=== PATIENT | female | born 1995 | race Caucasian/White ===

== ENCOUNTER → 2021-07-16 01:37 | Outpatient (CLI) | payer OTHER, SELFPAY ==
[2021-07-16 18:23] LABS: SARS-CoV-2 RNA PCR Negative
== END ==
PROVIDERS: Visit Provider Obstetrics & Gynecology
DX: Z01.812 Encounter for preprocedural laboratory examination (principal); Z20.822 Contact with and (suspected) exposure to COVID-19
CPT/HCPCS: C9803; U0003; U0005

== ENCOUNTER 2021-07-16 09:12 | Outpatient (CLI) | payer OTHER, SELFPAY | END 2021-07-16 09:13 | disposition home or self-care (01) | LOC: ANHSURGERY 09:15 | PROVIDERS: PCP Internal Medicine; Visit Provider Obstetrics & Gynecology | DX: R10.2 Pelvic and perineal pain (principal); Z01.818 Encounter for other preprocedural examination | CPT/HCPCS: 36415; 86850; 86900; 86901 ==

== ENCOUNTER 2021-07-19 01:19 | Day surgery (SDC) | payer OTHER, SELFPAY ==
[2021-07-11 15:54] VITALS: BMI 19.2
--- NOTE | 2021-07-17 07:41 | PM.IMHP ---
H&P: HPI History of Present Illness Date/Time: 07/17/21 07:41 [age] seen in laparoscopy secondary to pain dyspnea. Patient's history review repair 20s and IUD surgically removed she was risks and benefits were reviewed including but not exclusive of , aspiration pneumonia, bleeding, transfusion perforation injury to bowel bladder, internal organs with need laparotomy. She received the [employer] handout entitled laparoscopy. She had all questions answered. She asked to proceed Chief Complaint: Pelvic pain Review of Systems Review of Systems: All systems reviewed & are unremarkable except as noted in HPI and below PMFSH Social History Social History Smoking status: Never smoker Alcohol intake: never Substance use: current Substance use type: marijuana Other substance usage details: SMOKE Last use: 07/06/21 Spiritual care concerns: No Meds Home Medications and Allergies Home Medications Medication Instructions Recorded Confirmed Type dicyclomine 20 mg PO PRN PRN 07/11/21 07/11/21 History [id number] 1 tablet PO DAILY 07/11/21 07/11/21 History [] promethazine 25 mg PO Q6H PRN 07/11/21 07/11/21 History Allergies Allergy/AdvReac Type Severity Reaction Status Date / Time gluten AdvReac Severe Diarrhea Verified 07/11/21 15:51 Exam Const: General: no acute distress Eyes: General: appearance normal, both eyes and all related structures Neck: Neck: supple and no JVD Thyroid: thyroid normal Resp: Effort & Inspection: normal respiratory effort Auscultation: clear to auscultation bilaterally Cardio: Rate: regular rate Rhythm: regular rhythm GI: Inspection: non-distended GI Palp: Yes Soft to palpation, No Tenderness to palpation present (GI) and No Guarding due to palpation present (GI) Auscultation: normal bowel sounds : External Female Exam: normal external appearance Speculum Exam - Vagina: normal appearance of the vagina Speculum Exam - Cervix: normal appearance of the cervix and Cervical os closed Bimanual exam- vagina & uterus: Cervical tenderness present and Uterine tenderness Bimanual Exam- Adnexa, other: tender Skin: General skin exam: no rashes or lesions noted Extrem: General: normal to inspection and no edema Psych: Mental Status: mental status grossly normal Affect: normal affect Assessment and Plan Additional Plan Impression: Pelvic pain Plan: Diagnostic laparoscopy
--- NOTE | 2021-07-18 14:40 | P.PNAN_ITS ---
Anes - Initial Pre Proc Eval Procedure: Operation Date: 07/19/21 09:30 Proposed Procedures p Diagnostic Laparoscopy - Andrew Watkins MD Date/Time: 07/18/21 14:40 Surgeon: Andrew Watkins MD Pre Op Diagnosis: pelvic pain Patient Data Age: 26 Gender: F Height: 1.63 m Weight: 50.8 kg Allergies Allergy/AdvReac Type Severity Reaction Status Date / Time gluten AdvReac Severe Diarrhea Verified 07/11/21 15:51 Home Medications Medication Instructions Recorded Confirmed Type dicyclomine 20 mg PO PRN PRN 07/11/21 07/11/21 History [id number]-[id number]-[id number] 1 tablet PO DAILY 07/11/21 07/11/21 History [] promethazine 25 mg PO Q6H PRN 07/11/21 07/11/21 History hydrocodone-acetaminophen 1 tablet PO Q4H PRN #30 tablet 07/19/21 Rx Patient hx anesthesia problems: none Family hx anesthesia problems: none Results Review: All pre-operative results and documents have been reviewed as part of the pre-operative evaluation. [facility] Past Medical History Medical History (Updated 07/19/21 @ 07:00 by Andrew Watkins MD) Asthma Celiac disease IBS (irritable bowel syndrome) Social History Social History Smoking status: Never smoker Alcohol intake: never Substance use: current Substance use type: marijuana Other substance usage details: SMOKE Last use: 07/06/21 Living arrangements: with family Spiritual care concerns: No Anes - Eval Final PreProcedure Day of Procedure 07/18/21 14:40 Patient weight: thin Heart: regular rate and rhythm Lungs: clear to auscultation and normal air movement Airway: Mallampati scale class II Neurological: alert and oriented Last oral intake: >/= 8 hours ASA classification: III Emergent: no Anesthetic plan: proceed Anesthesia type and monitoring: general ETT and standard monitoring Results Review: All pre-operative results and documents have been reviewed as part of the pre-operative evaluation. Informed Consent: The patient's anesthetic plan and its attendant risks and benefits were discussed with the patient/family/POA. Questions were solicited and answers provided to the satisfaction of the patient/family/POA.
[2021-07-19] VITALS (10 sets, daily range): BP systolic 106–124; BP diastolic 67–93; PULSE 55–96; RESP 10–20; TEMP 36.2–36.4; O2SAT 97–100
--- NOTE | 2021-07-19 06:59 | WPDHPUPDATE1 ---
History and Physical Update Update Date/Time: 07/19/21 06:59 History and Physical has been reviewed, including an updated exam of the patient. There are NO changes in the patient's condition. Risks, benefits, and alternatives have been discussed and questions answered. Patient agrees to proceed with procedure.
[2021-07-19] MEDS: ACETAMINOPHEN 500 MG TABLET 1000 MG PO (08:28)
[2021-07-19] MEDS: LACTATED RINGERS 1,000 ML 30 ML IV CONT ×2 (08:30→10:23)
[2021-07-19] MEDS: KETOROLAC 15 MG/ML VIAL (*BKC) IV PUSH (08:32)
--- NOTE | 2021-07-19 10:16 | W.PM.PROC2 ---
Procedure Note - Detailed Date of Procedure 07/19/21 Pre-op Diagnosis pelvic pain Post-op Diagnosis other (Endometriosis /bilateral ovarian cysts /pelvic adhesions) Procedure Performed laparoscopic destruction of endometriosis / destruction of bilateral ovarian cyst / lysis of adhesions Surgeon Andrew Watkins MD Anesthesia general Indications a 26-year-old female with pelvic pain Findings endometriosis on the posterior surface of the uterus. Endometriosis and the left colons de sac. Bilateral simple ovarian cysts adhesions from the colon to the left lateral sidewall Description of Procedure the patient was prepped draped in the normal sterile fashion placed in the dorsal lithotomy position. Under excellent general trach anesthesia weighted speculum placed posterior fornix vagina. Anterior lip of the cervix grasped with single-tooth tenaculum and the Carrera's cannula inserted. This was then attached to the single-tooth to be used for uterine manipulation. Bladder emptied of clear urine in the weighted speculum removed. An umbilical incision was made the Veress needle passed in the abdomen. The abdomen filled with CO2 gas 15mmHg. The 5mm trocar advanced under direct visualization assuring no injury. The patient placed in Trendelenburg and a suprapubic incision made. The 5mm trocar advanced under direct visualization assuring no injury. About 40cc of serosanguineous fluid was noted in the cul-de-sac and this was suction and removed this was then irrigated until clear. Small area of endometriosis was seen along the left uterosacral ligament this was cauterized at 50 w per 2nd. Bilateral ovarian cysts were seen and these were cauterized in linear fashion with monopolar cautery. The posterior surface of the uterus head trauma clear walled endometriosis and this was cauterized. No other abnormalities were seen in photo documentation undertaken. Lower site removed and the gas removed from the abdomen. The upper site removed and the incisions closed with 4 Monocryl and glue. Instruments removed from vagina and the patient was awakened. She went to recovery in satisfactory condition. All sponge, needle, instrument counts were correct. There were no immediate complications
[2021-07-19] MEDS: fentaNYL CITRATE INJ (*CRX) 100 MCG/2 ML VIAL 25 MCG IV PUSH (11:09)
[2021-07-19] MEDS: oxyCODONE HCL (*CRX) 5 MG TAB IR PO (12:07)
== END 2021-07-19 13:10 | disposition home or self-care (01) ==
PROVIDERS: PCP Internal Medicine; Visit Provider Obstetrics & Gynecology
PROC: (CPT 49320; principal; 2021-07-19 09:30)
DX: R10.2 Pelvic and perineal pain (principal); N80.3 Endometriosis of pelvic peritoneum; N73.6 Female pelvic peritoneal adhesions (postinfective); J45.909 Unspecified asthma, uncomplicated; K58.9 Irritable bowel syndrome, unspecified; K90.0 Celiac disease; F12.90 Cannabis use, unspecified, uncomplicated; N83.202 Unspecified ovarian cyst, left side; N83.201 Unspecified ovarian cyst, right side
CPT/HCPCS: 58662; A9270; J1100; J1885; J2250; J2405; J2704; J2710; J3010; J7120

== ENCOUNTER 2021-10-18 12:09 | Emergency (ER) | payer OTHER, SELFPAY ==
[2021-10-18 12:18] VITALS: BP 145/76; PULSE 103; RESP 16; TEMP 36.6; O2SAT 99
--- NOTE | 2021-10-18 12:37 | ED.SKABFB ---
HPI - Skin/Abscess/Foreign Bdy General Chief complaint: Skin/Abscess/Foreign Body Stated complaint: Rash Time Seen by Provider: 10/18/21 12:30 Source: patient Mode of arrival: ambulatory Limitations: no limitations History of Present Illness HPI narrative: Faizan Gil is a 26 yo female with PMH of asthma, celiac disease comes to [facility] with 1 day of a overall body fine red rash with mild swelling of her eyelids. She called her doctor yesterday who sent her out 20 mg of prednisone to take each day as well as Benadryl she says she is getting worse. She denies being ill having a fever any other illness, claims that there is been no change in any cleaning products or exposure to any new substance. Related Data Allergies Allergy/AdvReac Type Severity Reaction Status Date / Time gluten AdvReac Severe Diarrhea Verified 07/19/21 08:21 Review of Systems Review of Systems: CONSTITUTIONAL: Denies fever, chills, sweats. EYES: Denies visual changes, redness, discharge. ENT: Denies rhinorrhea, congestion, sore throat, otalgia. CARDIOVASCULAR: Denies chest pain, palpitations, edema. RESPIRATORY: Denies dyspnea, wheezing, cough GASTROINTESTINAL: Denies abdominal pain, nausea, vomiting, diarrhea. GENITOURINARY: Denies dysuria, hematuria, abnormal discharge SKIN: Overall body fine red rash that is pruritic NEUROLOGIC: Denies numbness, or focal weakness. PSYCHIATRIC: Denies anxiety or depression. PMFSH Past Medical History Medical History Asthma Celiac disease IBS (irritable bowel syndrome) Social History Social History Smoking status: Never smoker Alcohol intake: never Substance use: current Substance use type: marijuana Other substance usage details: SMOKE Last use: 07/06/21 Spiritual care concerns: No Comments At time of signature, I agree with nursing past medical, surgical, social and family history. There is no relevant family history pertinent to the presenting complaint. Blood pressure is elevated at this visit patient states rash is pruritic Exam Narrative: GENERAL: This is a well-nourished, well-developed patient, in mild distress. HEAD: normocephalic, atraumatic. EYES: Sclera clear/white. Vision is grossly intact. EARS: External ears normal, auditory canals clear and without drainage, TMs normal without perforation. Hearing grossly intact. NOSE: External nose normal without nasal discharge, nares without redness, no rhinorrhea. THROAT: Mucous membranes moist, , no erythema no swelling NECK: Neck supple, non-tender CARDIOVASCULAR: Tachycardic rate and rhythm without murmurs, gallops, or rubs. RESPIRATORY: Clear to auscultation. Breath sounds equal bilaterally. GASTROINTESTINAL: Abdomen soft, SKIN: warm, intact with fine red rash overall the body with mild swelling of the eyelids NEURO: awake, alert, and oriented to person, place and time. There were no obvious focal neurologic abnormalities. Steady gait EXTREMITIES: Normal range of motion. BACK: Nontender without deformity Course Course Emergency Course: Patient comes to [facility] with fine red rash all over her body she had started prednisone from her doctor yesterday and she says is getting worse Given Solu-Medrol 125 and Pepcid here; Handed famotidine and Zyrtec to her existing Benadryl and changed her dose of prednisone to 50 mg of the next 4 days Reiterated that she should not change any soaps or lotion that she is using, denies any change in drugs that she is using [facility] Care: [facility] Vital Signs Vital signs: Vital Signs Temperature 97.9 F 10/18/21 12:18 Pulse Rate 103 H 10/18/21 12:18 Respiratory Rate 16 10/18/21 12:18 Blood Pressure 145/76 H 10/18/21 12:18 Pulse Oximetry 99 10/18/21 12:18 Temperature 97.9 F 10/18/21 12:18 Pulse Rate 103 H 10/18/21 12:18 Respiratory Rate 16 10/18/21 12
[2021-10-18] MEDS: FAMOTIDINE 20 MG TABLET PO (12:45)
[2021-10-18] MEDS: methylPREDNISolone SOD SUCC 125 MG VIAL IM (12:45)
== END 2021-10-18 13:19 | disposition home or self-care (01) ==
PROVIDERS: Emergency Provider Nurse Practitioner; PCP Internal Medicine
DX: L50.9 Urticaria, unspecified (principal); L23.9 Allergic contact dermatitis, unspecified cause; J45.909 Unspecified asthma, uncomplicated; K90.0 Celiac disease
CPT/HCPCS: 96372; 99213; A9270; G0463; J2930